=== PATIENT | female | born 1955 | race Caucasian/White ===

== ENCOUNTER → 2016-09-30 | Outpatient (CLI) | payer OTHER ==
[~2016-09-30] MED LIST: ACCUPRIL40 MG PO; ASPIRIN PO; ASPIRIN81 M2 PO; ATENOLOL PO; AUGMENTIN875 M1 PO; CALCIUM 500 +1 EAC2 PO; CARDURA1 MG PO; CARVEDILOL25 MG PO; CLINORIL PO; COREG3.125 MG PO; DIOVAN PO; FLONASE 0.05% N16 G1; GABAPENTIN800 MG PO; HYDROCHLOROTHIA25 MG PO; LEVOTHYROXINE100 MCG PO; LIPITOR PO; LIPITOR20 MG PO; MAGIC MOUTHWASH PO; METFORMIN HCL500 M1 PO; NEURONTIN PO; NO MEDICATIONS; PERCOCET 5-3251 TAB PO; PROMETH-CODEIN 65 ML PO; PROVENTIL0.83 MG/ML INH; RANITIDINE HCL150 M1 PO; SYNTHROID0.1 MG PO
--- NOTE | ~2016-09-30 | CT57 ---
[facility] A Service of [facility] & [facility] RADIOLOGY TEXT RESULTS PATIENT: CAROLINA CANNON [facility] UNIT #: [id number] AGE: [address]: Rachel Montemayor SEX: F ORDER DR: [id number] [facility] [address] [place], [place] [address] [id number] MR#: [id number] Acc #: [id number] NAME: CAROLINA CANNON : 1955 SEX: F STUDY DATE/TIME: 09/30/2016 13:45 UNIT: [facility] ROOM: STUDY DESCRIPTION: CT Chest Wo Cont Attending Physician: Rachel Motnemayor A.P.R.N. Referring Physician: Rachel Montemayor A.P.R.N. Ordering Physician: Rachel Montemayor A.P.R.N. Primary Care Physician: Anton Castro M.D. MEDICAL IMAGING REPORT This report is preliminary unless electronic signature is present EXAM High-resolution chest CT INDICATION Shortness of breath for [address] of the chest was performed without contrast. Selected HRCT imaging was obtained in supine and prone positioning. This CT exam was performed with one or more of the following radiation dose reduction techniques: automatic exposure control, adjustment of mA and/or kV according to patient size, and iterative reconstruction. COMPARISON Chest CT from 06/24/2016 FINDINGS There are scattered tiny calcified granulomas in the lungs. There is a stable tiny micronodule within the right middle lobe on image 32. This can be followed again in 1 year if the patient has risk factors for malignancy such as smoking. Selected HRCT imaging demonstrates no evidence for bronchiectasis, diffuse infiltrate, lung disease or honeycombing. There is a stable noncalcified micronodule in the left lower lobe on image 43 which can also be followed in 1 year. There are postoperative changes of the thyroid gland. There is no suspicious lymphadenopathy. Small hiatal hernia. No pleural effusion. Limited imaging of the upper abdomen demonstrates fatty infiltration of the liver. Bone windows are unremarkable. IMPRESSION 1. No evidence of bronchiectasis, diffuse infiltrative lung disease or honeycombing. [facility] A Service of [facility] & [facility] RADIOLOGY TEXT RESULTS PATIENT: CAROLINA CANNON LOCATION: [facility] : 55 UNIT #: [id number] AGE: [address]: Rachel Montemayor SEX: F ORDER DR: 2. There are 2 tiny noncalcified micronodules which are stable. These can be followed again in 1 more year to document continued stability particularly if the patient is at increased risk for malignancy such as a smoking history. Dictated by... Skyler Cannon M.D. THIS IS AN ELECTRONICALLY VERIFIED REPORT Skyler Cannon M.D. at 10/01/2016 4:47 PM Tony TD: 10/01/2016 09:23 JOB #: [id number] MEDICAL IMAGING REPORT Page 1 of 1 COPY
== END | disposition home or self-care (01) ==
LOC: CCAT 13:04
DX: R91.8 Other nonspecific abnormal finding of lung field (principal)
CPT/HCPCS: 71250